=== PATIENT | female | born 1955 | race Caucasian/White ===

== ENCOUNTER 2019-03-20 14:47 | Emergency (ER) | payer OTHER ==
[2019-03-20 15:07] VITALS: BP 168/102
--- NOTE | 2019-03-20 15:16 | UC ---
UC General HPI - HPI Summary HPI Summary: 63-year-old female who had 2 round worms in her stool today. She denies any traveling outside the country however she does have cats and she apparently kisses her cats. The cats had been diagnosed with worms about one month ago. - History of Current Complaint Chief Complaint: UCGI Stated Complaint: PERSONAL Time Seen by Provider: 03/20/19 14:57 Hx Obtained From: Patient Onset/Duration: Sudden Onset, Other - Patient noticed in stool today. Onset Severity: Mild Current Severity: Mild Pain Intensity: 0 - Allergy/Home Medications Allergies/Adverse Reactions: Allergies Allergy/AdvReac Type Severity Reaction Status Date / Time No Known Allergies Allergy Verified 03/20/19 15:07 Home Medications: Home Medications 10 Strain Probiotic With B 10 mg PO DAILY 03/20/19 [History Confirmed 03/20/19] Ascorbic Acid TAB* [Vitamin C TAB*] 500 mg PO DAILY 03/20/19 [History Confirmed 03/20/19] Ascorbic Acid/Vitamin E/Biotin [Hair Skin Nails-Biotin Gummies] 2 each PO DAILY 03/20/19 [History Confirmed 03/20/19] Aspirin [Aspir-Low] 81 mg PO DAILY 03/20/19 [History Confirmed 03/20/19] Calcium Carb/Vitamin D3/Vit K1 [Viactiv 650 mg-12.5 Mcg Chew] 1 each PO DAILY [History Confirmed 03/20/19] Cholecalciferol (Vitamin D3) [Vitamin D3] 2,000 unit PO DAILY 03/20/19 [History Confirmed 03/20/19] Fenofibrate [Tricor 160 MG] 160 mg PO DAILY 03/20/19 [History Confirmed 03/20/19 ] Flaxseed Oil [Benton-3 Flaxseed Oil] 1,400 mg PO DAILY 03/20/19 [History Confirmed 03/20/19] Glucosamine Sulfate Dipot Chlr [Gnp Glucosamine Maximum S] 1,500 mg PO DAILY [History Confirmed 03/20/19] Lovastatin [Altoprev] 40 mg PO DAILY 03/20/19 [History Confirmed 03/20/19] Vitamin B 12 5,000 mcg PO DAILY 03/20/19 [History Confirmed 03/20/19] PMH/Surg Hx/FS Hx/Imm Hx Previously Healthy: Yes Endocrine History: Dyslipidemia - Surgical History Surgical History: Yes Surgery Procedure, Year, and Place: Left breastBiopsy over 10 yrs ago-[facility]; c- sect x2 - Family History Known Family History: Positive: Non-Contributory - Social History Alcohol Use: Rare Substance Use Type: None Smoking Status (MU): Never Smoked Tobacco Review of Systems All Other Systems Reviewed And Are Negative: Yes Gastrointestinal: Positive: Other - Patient saw to run worms in her stool. She did present them with her today. Is Patient Immunocompromised?: No Physical Exam Triage Information Reviewed: Yes Appearance: Well-Appearing, No Pain Distress, Well-Nourished Vital Signs: Initial Vital Signs Temp 97.3 F 03/20/19 14:59 Pulse 84 03/20/19 14:59 Resp 16 03/20/19 14:59 BP 168/102 03/20/19 14:59 Pulse Ox 98 03/20/19 14:59 Vital Signs Reviewed: Yes Psychological Exam: Normal - Patient has no complaints other than she had 2 round worms in her stool. Course/Dx - Course Course Of Treatment: The patient did bring in the round worms. The mebendazole prescription was too expensive for the patient and was not covered by insurance therefore it was changed to albendazole 200 mg today and to repeat in 1 week from now. The patient is going to call her prior care provider to get preauthorization for the second prescription if possible tomorrow. - Diagnoses Provider Diagnosis: Helminth infection, unspecified Discharge - Sign-Out/Discharge Documenting (check all that apply): Patient Departure All imaging exams completed and their final reports reviewed: No Studies - Discharge Plan Condition: Fair Disposition: HOME Prescriptions: Albendazole 200 mg PO ONCE 1 Days #2 tablet Patient Education Materials: Pinworm Infection (ED) Referrals: Denisa Cooney PA [Primary Care Provider] - Additional Instructions: Good handwashing. Take 1 tablet today and one in 2 weeks from now. Do not kiss your cats, do not touch cat stool when changing the litter box. Follow-up with your primary care provider as needed. The worms you showed us are not pinworms they are more than likely roundworm's. - Billing Disposition and Condition Condition: FAIR Disposition: Home
== END 2019-03-20 15:29 | disposition home or self-care (01) ==
LOC: UCCORT 14:47
DX: B83.9 Helminthiasis, unspecified (principal); E78.5 Hyperlipidemia, unspecified
CPT/HCPCS: 99212; G0463